=== PATIENT | female | born 1960 | race Two or more races ===

== ENCOUNTER → 2023-08-21 14:54 | Outpatient (REF) | payer MEDICARE, OTHER, SELFPAY | LOC: MRI 3T 14:54 | PROVIDERS: ATTENDING PHYSICIAN Internal Medicine Hematology & Oncology; FAMILY PHYSICIAN Family Medicine | DX: D50.9 Iron deficiency anemia, unspecified (principal); C90.00 Multiple myeloma not having achieved remission; D50.0 Iron deficiency anemia secondary to blood loss (chronic) | CPT/HCPCS: 72158; A9575 ==